=== PATIENT | male | born 1985 | race Hispanic/Latino ===

== ENCOUNTER 2021-06-12 14:59 | Outpatient (RCR) | payer OTHER | END 2021-06-22 | LOC: OT 14:59 | PROVIDERS: ATTEND Orthopaedic Surgery | DX: S52.571A Other intraarticular fracture of lower end of right radius, initial encounter for closed fracture (principal) ==

== ENCOUNTER 2021-06-25 07:25 | Outpatient (RCR) | payer OTHER | END 2021-07-23 | LOC: OT 07:25 | PROVIDERS: ATTEND Orthopaedic Surgery | DX: S52.571A Other intraarticular fracture of lower end of right radius, initial encounter for closed fracture (principal) ==